=== PATIENT | female | born 1960 | race Caucasian/White ===

== ENCOUNTER 2016-10-29 10:58 | Day surgery (SDC) | payer BC ==
[2016-10-29] MEDS ORDERED: Bupivacaine 0.5% SDV PF* 30 ML VIAL ONE (11:10)
[2016-10-29 15:26] VITALS: BP 125/82
[2016-10-29] MEDS ORDERED: Mineral Oil Sterile, TOPICAL* 25 ML BTL ONE (17:35)
[2016-10-29] MEDS ORDERED: Lidocaine 1% INJ* 10 MG/ML 30 ML SDV ONE (17:35)
[2016-10-29] MEDS ORDERED: Bupivacaine 0.25% EPI 200,000* 30 ML SDV ONE ×2 (17:35)
--- NOTE | 2016-10-30 14:40 | OP ---
DATE OF OPERATION: 10/29/16 - [facility] DATE OF : 64 SURGEON: Jimmy Munguia MD [employer] MEMBER: PJ Anaya ANESTHESIOLOGIST: None. ANESTHESIA: Local only with digital block via 0.5% Marcaine. PRE-OP DIAGNOSIS: Right middle finger dorsal PIP mass. POST-OP DIAGNOSIS: Right middle finger dorsal PIP mass. OPERATIVE PROCEDURE: Excision of right middle finger dorsal proximal interphalangeal joint mass. INDICATIONS: Lisette has had for few months a waxing and waning quite large mass over the dorsum of the PIP joint, never had anything like this before in any of the other joint. She has no history of rheumatoid or any inflammatory arthropathy. None of her other joints have been infected. The mass gets larger and smaller. I aspirated in the office and I got some straw-colored fluid back. She now presents couple of days later for excision of the mass. ESTIMATED BLOOD LOSS: 2 mL. COMPLICATIONS: None. FINDINGS: The dorsal mass was soft tissue and the appearance of almost a proliferative synovitis. DESCRIPTION OF PROCEDURE: Lisette was seen in the preoperative holding area. The correct site, side, and procedure were identified. We had a time-out and then I performed a digital block with 0.5% Marcaine. We then came back to the operating room and the arm was prepped and draped in the usual fashion. A formal time-out was performed. I began by making an curvilinear incision centered over the dorsal ulnar aspect of the PIP joint. A full thickness flap was raised, raising the dermis, traversing dorsal veins as a flap off of the underlying mass. The flap was raised in its entirety. I then came back to the ulnar aspect of the mass and I raised it off of the underlying paratenon with the grand traverse blade taking care to preserve the paratenon. It came off as a very nice layer. It extended distally on to the dorsal aspect of the middle phalanx base and proximally on to the dorsal aspect to the proximal phalanx. Overall, it was 1 cm x 1 cm x about 4 mm in diameter or in thickness. The tissue was excised in its entirety and handed off as a specimen. I then looked at the margins and took the [place] blade and excised just a couple of areas what looked like it might be little bit of involved tissue. The specimen was sectioned and sent to the lab for pathology, Gram stain and culture, aerobic and anaerobic as well as fungal cultures and acid fast cultures. The wound was then irrigated. I examined the PIP joint. It really did not feel like it was boggy and full synovitis, so I did not open the joint. The bipolar was used for hemostasis. The skin was closed with 4-0 nylon suture. The wound was dressed with Xeroform, 4x4, 1 inch Mario and a Coban dressing. Please note that prior to making skin incision, I had placed a Tourni-Cot and left this in place throughout the entirety of the procedure as a tourniquet. Tourni-Cot was removed just prior to placing the dressings. The finger pinked up immediately. After the dressings were on, she was taken to the recovery room in stable condition. [id number] #: [id number] MTDD
== END 2016-10-29 15:19 | disposition home or self-care (01) ==
LOC: OREAST 10:58
PROVIDERS: ATTEND Orthopaedic Surgery Hand Surgery
DX: M67.442 Ganglion, left hand (principal)
CPT/HCPCS: 87070; 87073; 87116; 87205; 87206; 88304; A9270-GY; J2001